=== PATIENT | female | born 1940 | race Caucasian/White ===

== ENCOUNTER 2020-09-11 11:46 | Outpatient (RCR) | payer MEDICARE, SELFPAY ==
[2014-07-17 11:38] VITALS: BMI 25.9
== END 2020-09-11 23:59 ==
LOC: IMMUN 11:46
PROVIDERS: PCP Nurse Practitioner Primary Care; Visit Provider Family Medicine
DX: Z23 Encounter for immunization (principal)
CPT/HCPCS: 0011A; 0012A; 91301

== ENCOUNTER → 2021-03-11 | Outpatient (CLI) | payer MEDICARE, SELFPAY | END | disposition home or self-care (01) | PROVIDERS: PCP Nurse Practitioner Primary Care; Referring Provider Internal Medicine Hematology & Oncology; Visit Provider Internal Medicine Hematology & Oncology | DX: C91.10 Chronic lymphocytic leukemia of B-cell type not having achieved remission (principal) ==